=== PATIENT | female | born 1980 ===

== ENCOUNTER 2024-06-30 20:57 | Outpatient (REF) | payer BC, SELFPAY ==
[2024-06-30 21:16] LABS: Abs Immature Grans 0.02 10^3/uL (0.0-0.06); Absolute Basophil Count 0.05 10^3/uL (0.0-0.2); Absolute Eosinophil Count 0.08 10^3/uL (0.0-0.7); Absolute Lymphocyte Count 1.34 10^3/uL (1.2-3.4); Absolute Neutrophil Count 1.23 10^3/uL (1.2-6.7); Basophils % 1.5 %; Eosinophils % 2.3 %; HCT 46.1 % (36.0-46.0); HGB 15.4 g/dL (11.2-15.7); Immature Grans % 0.6 %; Lymphocytes % 39.2 %; MCH 28.7 pg (27.0-33.0); MCHC 33.4 % (32.0-36.0); MCV 86 fL (80-95); MPV 10.1 fL (8.0-11.0); Monocytes % 20.5 %; Neutrophils % 35.9 %; Platelet Count 270 10^3/uL (130-400); RBC 5.36 10^6/uL (3.93-5.22); RDW 12.3 % (11.7-14.6); RDW-SD 39.1 fL; WBC 3.42 10^3/uL (4.4-10.8)
[2024-06-30 21:29] LABS: ALT 8 U/L (14-59); AST 24 U/L (15-37); Albumin 3.7 g/dL (3.4-5.0); Alkaline Phosphatase 64 U/L (46-116); BUN 11 mg/dL (7-18); Bilirubin, Total 0.41 mg/dL (0.2-1.0); CREATININE 0.8 mg/dL (0.55-1.02); Chloride 104 mmol/L (98-107); Estimated GFR 94.87 (mL/min/1.73m2); Glucose 96 mg/dL (74-106); Potassium 3.6 mmol/L (3.5-5.1); Sodium 139 mmol/L (136-145); Total Protein 7.3 g/dL (6.4-8.2)
[2024-06-30 21:36] LABS: Lipase 36 U/L (<78)
== END 2024-06-30 20:58 | disposition home or self-care (01) ==
LOC: NCHCN 20:57
PROVIDERS: Visit Provider Nurse Practitioner Family
DX: R10.9 Unspecified abdominal pain (principal)
CPT/HCPCS: 80053; 83690; 85025